=== PATIENT | female | born 2000 | race Caucasian/White ===

== ENCOUNTER 2020-08-19 14:45 | Outpatient (CLI) | payer OTHER ==
--- NOTE | 2020-08-19 17:22 | Ultrasound Report ---
PROCEDURE: OB First Trimester w/TV INDICATIONS: TECHNIQUE: Transvaginal ultrasound was performed. COMPARISON: None. FINDINGS: The LMP is reported to be 07/01/2020 with estimated delivery date based on this parameter 05/07/2021. T he current examination shows a crown-rump length of 1.2 cm which correlates with 7 weeks 3 days of ge stational age and cardiac activity at 1 65 bpm was observed. The delivery date based on this ev aluation is 04/04/2021, +/- 5 days. Corpus luteum cyst is noted at the left ovary. IMPRESSION: Single living intrauterine gestation, with the delivery date projected to be centered on 04/04/2021, + /- 5 days. Follow-up anatomic survey at 20 weeks gestation is recommended. Reviewed by: Channing Duque MD on 08/19/2020 5:21 PM PST Approved by: Channing Duque MD on 08/19/2020 5:21 PM PST Station ID: [id number]
== END 2020-08-19 14:46 | disposition home or self-care (01) ==
LOC: DI 14:45
PROVIDERS: ATTEND Obstetrics & Gynecology
DX: Z33.1 Pregnant state, incidental (principal)
CPT/HCPCS: 76801; 76817

== ENCOUNTER 2020-08-22 15:45 | Outpatient (CLI) | payer OTHER ==
[2020-08-22 17:16] LABS: MUDS CUTOFF CONCENTRATIONS CUTOFF CONC BELOW:
[2020-08-22 19:29] LABS: BILIRUBIN,URINE NEGATIVE (NEGATIVE); GLUCOSE, URINE (UA) NEGATIVE (NEGATIVE); KETONES,URINE (UA) NEGATIVE (NEGATIVE); LEUKOCYTE ESTERASE, URINE NEGATIVE (NEGATIVE); NITRITE,URINE NEGATIVE (NEGATIVE); OCCULT BLOOD,URINE NEGATIVE (NEGATIVE); PH,URINE 6.5 PH (5.0-7.5); PROTEIN,URINE NEGATIVE (NEGATIVE); UROBILINOGEN,URINE 0.2 (NORMAL) E.U./dL (NORMAL)
[2020-08-22 19:42] LABS: CLARITY,URINE CLEAR (CLEAR)
[2020-08-22 19:43] LABS: AMPHETAMINE SCREEN,URINE NEGATIVE (NEGATIVE); BENZODIAZEPINES SCREEN, URINE NEGATIVE (NEGATIVE); COCAINE SCREEN URINE NEGATIVE (NEGATIVE); METHADONE SCREEN, URINE NEGATIVE (NEGATIVE); METHAMPHETAMINES SCREEN, URINE NEGATIVE (NEGATIVE); OPIATE SCREEN, URINE NEGATIVE (NEGATIVE); OXYCODONE SCREEN, URINE NEGATIVE (NEGATIVE); PROPOXYPHENE SCREEN, URINE NEGATIVE (NEGATIVE); TRICYCLIC ANTIDEPRESSANT,URINE NEGATIVE (NEGATIVE)
[2020-08-22 19:58] LABS: BACTERIA,URINE Few /HPF (None Seen); RBC,URINE None Seen /HPF (0-5); SQUAMOUS EPITHELIAL CELL,UR FEW Squamous (<= Few)
== END 2020-08-22 23:59 | disposition home or self-care (01) ==
LOC: LAB.R 15:45
PROVIDERS: ATTEND Obstetrics & Gynecology
DX: Z34.00 Encounter for supervision of normal first pregnancy, unspecified trimester (principal)
CPT/HCPCS: 80306; 81001; 87086

== ENCOUNTER 2020-09-10 15:57 | Outpatient (CLI) | payer OTHER ==
[2020-09-10 16:30] LABS: MUDS CUTOFF CONCENTRATIONS CUTOFF CONC BELOW:
[2020-09-10 16:33] LABS: BASOPHILS % (AUTO) 0.3 %; EOSINOPHILS # (AUTO) 0.1 10^3/uL (0.0-0.7); EOSINOPHILS % (AUTO) 0.9 %; HGB - HEMOGLOBIN 11.6 g/dL (12.0-16.0); LYMPHOCYTES # (AUTO) 2.6 10^3/uL (1.5-3.5); LYMPHOCYTES % (AUTO) 21.7 %; MEAN CORPUSCULAR HEMOGLOBIN 30.1 pg (27.0-31.0); MEAN CORPUSCULAR HGB CONC 33.8 g/dL (32.0-36.0); MEAN CORPUSCULAR VOLUME 89.1 fL (81.0-99.0); MEAN PLATELET VOLUME 9.8 fL (7.9-10.8); MONOCYTES # (AUTO) 0.6 10^3/uL (0.0-1.0); MONOCYTES % (AUTO) 5.1 %; NEUTROPHILS # (AUTO) 8.5 10^3/uL (1.5-6.6); NEUTROPHILS % (AUTO) 71.6 %; PLT - PLATELET COUNT 300 10^3/uL (130-450); RED BLOOD COUNT 3.85 10^6/uL (4.20-5.40); WHITE BLOOD COUNT 11.9 x10^3/uL (4.8-10.8)
[2020-09-10 17:03] LABS: BILIRUBIN,URINE NEGATIVE (NEGATIVE); GLUCOSE, URINE (UA) NEGATIVE (NEGATIVE); KETONES,URINE (UA) TRACE mg/dL (NEGATIVE); LEUKOCYTE ESTERASE, URINE NEGATIVE (NEGATIVE); NITRITE,URINE NEGATIVE (NEGATIVE); OCCULT BLOOD,URINE NEGATIVE (NEGATIVE); PROTEIN,URINE NEGATIVE (NEGATIVE); UROBILINOGEN,URINE 0.2 (NORMAL) E.U./dL (NORMAL)
[2020-09-10 17:17] LABS: CLARITY,URINE CLEAR (CLEAR)
[2020-09-10 17:18] LABS: BACTERIA,URINE Many /HPF (None Seen); RBC,URINE 0-5 /HPF (0-5); SQUAMOUS EPITHELIAL CELL,UR MANY Squamous (<= Few)
[2020-09-10 17:20] LABS: AMPHETAMINE SCREEN,URINE NEGATIVE (NEGATIVE); BENZODIAZEPINES SCREEN, URINE NEGATIVE (NEGATIVE); COCAINE SCREEN URINE NEGATIVE (NEGATIVE); METHADONE SCREEN, URINE NEGATIVE (NEGATIVE); METHAMPHETAMINES SCREEN, URINE NEGATIVE (NEGATIVE); OPIATE SCREEN, URINE NEGATIVE (NEGATIVE); OXYCODONE SCREEN, URINE NEGATIVE (NEGATIVE); PROPOXYPHENE SCREEN, URINE NEGATIVE (NEGATIVE); TRICYCLIC ANTIDEPRESSANT,URINE NEGATIVE (NEGATIVE)
[2020-09-12 09:46] LABS: HIV AG/AB 4TH GEN NON-REACTIVE (NON-REACTIVE)
[2020-09-12 13:07] LABS: HEPATITIS B SURFACE ANTIGEN NON-REACTIVE (NON-REACTIVE); HEPATITIS C ANTIBODY NON-REACTIVE (NON-REACTIVE)
== END 2020-09-10 15:58 | disposition home or self-care (01) ==
LOC: LAB 15:57
PROVIDERS: ATTEND Obstetrics & Gynecology
DX: Z34.00 Encounter for supervision of normal first pregnancy, unspecified trimester (principal)
CPT/HCPCS: 36415; 80306; 81001; 81599; 85025; 86592; 86762; 86787; 86803; 86850; 86900; 86901; 87086; 87340; 87389

== ENCOUNTER 2020-11-10 08:00 | Outpatient (CLI) | payer OTHER | END 2020-11-10 23:59 | disposition home or self-care (01) | LOC: LAB 08:00 | PROVIDERS: ATTEND Advanced Practice Midwife | DX: Z34.90 Encounter for supervision of normal pregnancy, unspecified, unspecified trimester (principal); Z36.8A Encounter for antenatal screening for other genetic defects | CPT/HCPCS: 36415; 81511; 81599 ==

== ENCOUNTER 2020-11-15 08:17 | Outpatient (CLI) | payer OTHER ==
--- NOTE | 2020-11-15 11:41 | Ultrasound Report ---
PROCEDURE: OB Detailed Eval INDICATIONS: SUPERVISION OF OUTSIDE/PRIOR DATING DATA: Last menstrual period (LMP): 07/01/2020. LMP-based estimated date of delivery (VEGA): 05/07/2021. First dating scan (date and location): 08/19/2020. Estimated date of delivery (VEGA) from first dating scan: 04/04/2021. TECHNIQUE: Real-time scanning was performed of the fetus, with image documentation and biometric measurements. Endovaginal scanning: Not performed COMPARISON: None. FINDINGS: General: A single living intrauterine gestation is present. Presentation: Vertex Placenta: Placental position is anterior, without previa. Amniotic fluid index: 11.8 cm, 22nd percentile for gestational age. Largest pocket measures 4.2 cm . heart rate: 169 beats per minute. Maternal cervical canal: 4.4 cm long; normal length is 2.5 cm or more. biometrics: Biparietal diameter: 4.7 cm, 20 weeks 2 days Head circumference: 17.5 cm, 20 weeks 0 days Abdominal circumference: 14.9 cm, 21 weeks 1 day Femur length: 3.1 cm, 19 weeks 5 days Estimated gestational age from initial scan: 20 weeks 0 days. Composite gestational age from present scan: 20 weeks 0 days Estimated weight and percentile: 323 g, 42nd percentile Measurement variability in biometric dating: +/- 10 days from 12-20 weeks gestation, +/- 2 weeks from 20-30 weeks gestation, +/- 3 weeks at 30 weeks gestation or later. Anatomic survey: Neuro: Ventricles are normal at less than 10 mm. Cisterna magna is normal at 3-11 mm. Cerebellum i s normal in size and morphology. Nuchal skin fold: Normal at less than 6 mm between 14 and 20 weeks gestational age. Face: Nose and lips, facial profile are normal. Spine: No evidence for spina bifida. Heart: 4-chambered heart is present, with normal ventricular outflow tracts. Diaphragm: Diaphragm is intact. Stomach: Left-sided stomach is present. Kidneys: No hydronephrosis. Normal is less than 5 mm in 2nd trimester, less than 7 mm in 3rd trimester. Cord: 3 vessel cord has orthotopic insertion. Bladder: Normal in size. Extremities: All 4 extremities are visualized. IMPRESSION: Single living intrauterine fetus in vertex presentation demonstrating expected interval growth as abo ve. face and profile not well seen due to gestational position. Recommend follow-up. Otherwise, nor mal survey. Reviewed by: Everardo Wiseman MD on 11/15/2020 11:39 AM PST Approved by: Everardo Wiseman MD on 11/15/2020 11:39 AM PST Station ID: [id number]
== END 2020-11-15 08:18 | disposition home or self-care (01) ==
LOC: DI 08:17
PROVIDERS: ATTEND Advanced Practice Midwife
DX: Z34.92 Encounter for supervision of normal pregnancy, unspecified, second trimester (principal)

== ENCOUNTER 2020-11-28 13:42 | Outpatient (CLI) | payer OTHER ==
--- NOTE | 2020-11-28 17:19 | Ultrasound Report ---
PROCEDURE: OB F/U or Repeat INDICATIONS: SUPERVISION OF NORMAL , F/U FAS OUTSIDE/PRIOR DATING DATA: Last menstrual period (LMP): 07/01/2020. LMP-based estimated date of delivery (VEGA): 05/07/2021. First dating scan (date and location): 08/19/2020. Estimated date of delivery (VEGA) from first dating scan: 04/04/2021. TECHNIQUE: Real-time scanning was performed of the fetus, with image documentation and biometric measurements. Endovaginal scanning: Not needed COMPARISON: All prior OB ultrasound studies for this . FINDINGS: General: A single living intrauterine gestation is present. Presentation: Vertex Placenta: Placental position is anterior, without previa. Amniotic fluid index: 14.0 cm, 44th percentile for gestational age. heart rate: 153 beats per minute. Maternal cervical canal: 5.6 cm long; normal length is 2.5 cm or more. biometrics: Estimated gestational age from initial scan: 21 weeks 6 days. Measurement variability in biometric dating: +/- 10 days from 12-20 weeks gestation, +/- 2 weeks from 20-30 weeks gestation, +/- 3 weeks at 30 weeks gestation or more. Other: Prior OB ultrasound did not allow clear visualization of the facial profile due to positioning. Currently the examination allows clear visualization of the facial structures and profi le. Completion of the anatomic survey has been achieved. IMPRESSION: Completion of the anatomic survey, excellent visualization of the facial pro file and facial structures. Reviewed by: Channing Duque MD on 11/28/2020 5:17 PM PST Approved by: Channing Duque MD on 11/28/2020 5:17 PM PST Station ID: [id number]
== END 2020-11-28 13:43 | disposition home or self-care (01) ==
LOC: DI 13:42
PROVIDERS: ATTEND Advanced Practice Midwife
DX: Z34.92 Encounter for supervision of normal pregnancy, unspecified, second trimester (principal); Z36.89 Encounter for other specified antenatal screening

== ENCOUNTER 2021-01-06 15:52 | Outpatient (CLI) | payer OTHER ==
[2021-01-06 17:08] LABS: HCT - HEMATOCRIT 31.8 % (37.0-47.0); HGB - HEMOGLOBIN 10.6 g/dL (12.0-16.0); MEAN CORPUSCULAR HEMOGLOBIN 31.5 pg (27.0-31.0); MEAN CORPUSCULAR HGB CONC 33.3 g/dL (32.0-36.0); MEAN CORPUSCULAR VOLUME 94.4 fL (81.0-99.0); MEAN PLATELET VOLUME 9.6 fL (7.9-10.8); RED BLOOD COUNT 3.37 10^6/uL (4.20-5.40); RED CELL DISTRIBUTION WIDTH 13.2 % (12.0-15.0); WHITE BLOOD COUNT 9.5 x10^3/uL (4.8-10.8)
== END 2021-01-06 15:53 | disposition home or self-care (01) ==
LOC: LAB 15:52
PROVIDERS: ATTEND Nurse Practitioner Obstetrics & Gynecology
DX: Z36.89 Encounter for other specified antenatal screening (principal)
CPT/HCPCS: 36415; 81599; 82950; 85027; 86850

== ENCOUNTER 2021-02-18 16:00 | Outpatient (CLI) | payer OTHER ==
[2021-02-18 16:18] LABS: HCT - HEMATOCRIT 35.5 % (37.0-47.0); HGB - HEMOGLOBIN 11.6 g/dL (12.0-16.0); MEAN CORPUSCULAR VOLUME 93.2 fL (81.0-99.0); RED BLOOD COUNT 3.81 10^6/uL (4.20-5.40); WHITE BLOOD COUNT 11.6 x10^3/uL (4.8-10.8)
[2021-02-18 16:19] LABS: MEAN CORPUSCULAR HEMOGLOBIN 30.4 pg (27.0-31.0); MEAN CORPUSCULAR HGB CONC 32.7 g/dL (32.0-36.0); MEAN PLATELET VOLUME 9.4 fL (7.9-10.8); RED CELL DISTRIBUTION WIDTH 14.1 % (12.0-15.0)
== END 2021-02-18 16:01 | disposition home or self-care (01) ==
LOC: LAB 16:00
PROVIDERS: ATTEND Radiology Diagnostic Radiology
DX: O99.019 Anemia complicating pregnancy, unspecified trimester (principal)
CPT/HCPCS: 36415; 85027

== ENCOUNTER 2021-03-10 08:00 | Outpatient (CLI) | payer OTHER | END 2021-03-10 23:59 | disposition home or self-care (01) | LOC: LAB.WC 08:00 → MERGE 15:35 → LAB.WC 23:59 | PROVIDERS: ATTEND Nurse Practitioner Obstetrics & Gynecology | DX: Z36.85 Encounter for antenatal screening for Streptococcus B (principal) | CPT/HCPCS: 87797 ==

== ENCOUNTER 2021-03-28 23:40 | Inpatient (IN) | payer OTHER ==
[2021-03-28] MEDS ORDERED: OXYTOCIN/SODIUM CHLORIDE 500 ML IV PRN (23:58)
[2021-03-28] MEDS ORDERED: OXYTOCIN 10 UNIT/ML VIAL IM PRN (23:58)
[2021-03-28] MEDS ORDERED: METHYLERGONOVINE 0.2 MG/ML VIAL IM PRN (23:58)
[2021-03-28] MEDS ORDERED: ONDANSETRON 4 MG/2 ML VIAL IVP PRN (23:58)
[2021-03-28] MEDS ORDERED: SODIUM CHLORIDE FLUSH 0.9% 10 ML SYRINGE IVP PRN (23:58)
[2021-03-28] MEDS ORDERED: LIDOCAINE-MPF 1% 30 ML VIAL ID PRN (23:58)
[2021-03-28] MEDS ORDERED: miSOPROStoL 200 MCG TABLET BC PRN (23:58)
[2021-03-28] MEDS ORDERED: CARBOPROST TROMETHAMINE 250 MCG/ML AMP IM PRN (23:58)
[2021-03-28] MEDS ORDERED: TRANEXAMIC ACID IN NACL 1,000 MG/100 ML BAG IV PRN (23:58)
--- NOTE | 2021-03-29 00:41 | HISTORY & PHYSICAL EXAMINATION ---
Admit History - Visit Reason Visit Reason: Membranes rupture - : 1 Parity: 0 Risk/History: positive: None Complications This : positive: Other (Excessive weight gain) - Mother's Labs Mother's Blood Type: positive: B Mother's RH: positive: Positive GBS: positive: Group B Step Negative Rubella Status: positive: Immune - Other Maternal History Other Maternal History: Patient is a 20 yo who presents with gross rupture of membranes. Patient reports waking from sleep at approximately 22:50 with a popping sensation. Had large gush of fluid and continues to pass large volumes of fluid. No VB. Endorses FM. Intermittent contractions. Excessive weight gain in of 47.6# Otherwise uncomplicated course. Anemia on iron supplementation. PMH: none PSH: none FH: mother with migraines SOC HX: Lives in [place] with active duty [employer] Works in [employer] No MARYSE PNC: Initial U/S: 08/19/2020 @ 7.3wks gestation c/w LMP dating for final VEGA 04/04/2021 B pos/Rubella immune VZV immune Genetic testing : Quad screen negative FAS 11/15/2020: Anterior placenta. PATIENCE wnl. EFW 42%. 3VC. face and profile not well seen due to position. Follow up recommended. 11/28/2020 Completion FAS WNL. Glucola- 95 27.3 CBC- 31.8 Fe ordered CBC- started Fe approx 01/12/2021- CBC 5/5 35.5/plt 349 Influenza: declines TDAP: 01/07/2021 GBS at 36 weeks- NEGATIVE HSV: denies self and partner Breast pump Rx 01/07/2021 MOD: Anticipate ; Partner Manolo - active duty; Girl- [place] pp contraception: POPs pap: 09/12/2020- neg Meds/Allgy - Allergies Allergies/Adverse Reactions: Allergies Allergy/AdvReac Type Severity Reaction Status Date / Time No Known Drug Allergies Allergy Verified 03/29/21 00:39 Review of Systems - Other Findings Other Findings: As per HPI, otherwise remaining systems are negative. Physical - Abdominal Exam Vital Signs: 118/4 129 Contraction Frequency (min/apart): Q6-10 Contraction Intensity: positive: Mild to moderate - Monitoring Heart Rate Baseline: 145 mod irving 15x15 accels no decels Strip Review: positive: Category I - Presentation Presentation: positive: Vertex - Vaginal Exam Membranes: positive: Membranes ruptured Dilation (in cm): Too high to reach per RN exam Station: positive: Ballotable Cervical Position: positive: Posterior - Speculum Exam Findings: positive: Gross leak - Other Notes Labor Progress Note/Additional Text: GEN: NAD HEENT: NCAT CV: tachycardic RESP: CTAB, normal effrot ABD: gravid, S&NT/ND EXT: WWP, no LE edema PSYCH: appropriate affect NEURO: A&O Vertex by BSUS Plan for Labor - Plan For Labor Plan for Labor: 20 yo at 39+1 wga here with gross ROM PROM: Intermittent mild contractions with no cervical change -Patient is initially tachycardic. Given 500 cc fluid bolus and HR returned to 90s -Starting with misoprostol 25 mcg BC Q4H for up to 6 doses -Will start pitocin when favorable FWB: Well grown, confirmed vertex by BSUS, GBS neg, Cat I tracing -Cont EFM PAIN: Fentanyl 50-100 mcg Q1H to max of 4 doses and not be given after 7 cm Epidural as desired Nitrous oxide as desires Anticipate In-patient care
[2021-03-29 00:44] LABS: BASOPHILS % (AUTO) 0.3 %; EOSINOPHILS # (AUTO) 0.1 10^3/uL (0.0-0.7); EOSINOPHILS % (AUTO) 0.8 %; HCT - HEMATOCRIT 35.3 % (37.0-47.0); HGB - HEMOGLOBIN 11.9 g/dL (12.0-16.0); LYMPHOCYTES % (AUTO) 28.6 %; MEAN CORPUSCULAR HEMOGLOBIN 30.6 pg (27.0-31.0); MEAN CORPUSCULAR HGB CONC 33.7 g/dL (32.0-36.0); MEAN CORPUSCULAR VOLUME 90.7 fL (81.0-99.0); MEAN PLATELET VOLUME 10.7 fL (7.9-10.8); MONOCYTES # (AUTO) 0.8 10^3/uL (0.0-1.0); MONOCYTES % (AUTO) 7.2 %; NEUTROPHILS # (AUTO) 6.6 10^3/uL (1.5-6.6); NEUTROPHILS % (AUTO) 62.5 %; PLT - PLATELET COUNT 347 10^3/uL (130-450); RED BLOOD COUNT 3.89 10^6/uL (4.20-5.40); RED CELL DISTRIBUTION WIDTH 13.3 % (12.0-15.0); WHITE BLOOD COUNT 10.6 x10^3/uL (4.8-10.8)
[2021-03-29] MEDS: LACTATED RINGERS 1,000 ML IV SCH ×3 (01:15→20:11)
[2021-03-29] MEDS ORDERED: TERBUTALINE 1 MG/ML VIAL SUBQ PRN (01:39)
[2021-03-29] MEDS ORDERED: LABETALOL 20 MG/4 ML SYRINGE IVP PRN (01:39)
[2021-03-29] MEDS ORDERED: hydrALAZINE INJ 20 MG/ML VIAL IVP PRN (01:39)
[2021-03-29] MEDS ORDERED: ONDANSETRON ODT 4 MG TABLET TL PRN (01:39)
[2021-03-29] MEDS ORDERED: SODIUM CHLORIDE FLUSH 0.9% 10 ML SYRINGE IVP PRN (01:39)
[2021-03-29] MEDS: miSOPROStoL 100 MCG TABLET BC SCH ×3 (01:50→11:14)
[2021-03-29] MEDS ORDERED: OXYTOCIN/SODIUM CHLORIDE 500 ML IV SCH (02:00)
[2021-03-29] MEDS: fentaNYL 100 MCG/2 ML VIAL IVP PRN ×2 (08:23→13:01)
[2021-03-29] MEDS: SODIUM CHLORIDE FLUSH 0.9% 10 ML SYRINGE IVP SCH ×2 (08:24→13:02)
[2021-03-29] MEDS ORDERED: SODIUM CHLORIDE FLUSH 0.9% 10 ML SYRINGE IVP SCH (09:00)
[2021-03-29] MEDS ORDERED: ROPIVACAINE 0.2% 200 MG/100 ML BAG EP ONE (15:49)
[2021-03-29] MEDS ORDERED: ePHEDrine 50 MG/ML VIAL IVP ONE (16:40)
[2021-03-29] MEDS ORDERED: ONDANSETRON 4 MG/2 ML VIAL IVP PRN (17:02)
[2021-03-29] MEDS ORDERED: NALBUPHINE 10 MG/ML AMP IVP PRN (17:02)
[2021-03-29] MEDS ORDERED: diphenhydrAMINE INJ 50 MG/ML VIAL IVP PRN (17:02)
[2021-03-29] MEDS ORDERED: NALOXONE 0.4 MG/ML VIAL IVP PRN (17:02)
[2021-03-29] MEDS ORDERED: METOCLOPRAMIDE 10 MG/2 ML VIAL IVP PRN (17:02)
--- NOTE | 2021-03-29 17:06 | ANESTHESIA ---
Pre-Anesthesia VS, & Labs - Diagnosis Term labor, IUP - Procedure Epidural for Vital Signs: Temp Pulse Resp BP Pulse Ox 37.4 C 110 H 20 118/64 03/29/21 00:57 03/29/21 00:57 03/29/21 00:57 03/29/21 00:57 Height: 5 ft 4 in Weight (kg): 104.326 kg Body Mass Index: 39.4 BMI Classification: Obese - NPO Last Fluid Intake: t/o day Last Food Intake: full dinner - Is Patient ?: Yes - Lab Results Current Lab Results: Laboratory Tests 03/29/21 00:50: Blood Type B POSITIVE, Antibody Screen NEGATIVE 03/29/21 00:20: WBC 10.6, RBC 3.89 L, Hgb 11.9 L, Hct 35.3 L, MCV 90.7, MCH 30.6, MCHC 33.7, RDW 13.3, Plt Count 347, MPV 10.7, Neut # (Auto) 6.6, Lymph # (Auto) 3.0, Stanton # (Auto) 0.8, Eos # (Auto) 0.1, Baso # (Auto) 0.0, Absolute Nucleated RBC 0.00, Nucleated RBC % 0.0 Lab results reviewed: Yes Fish Bones: 03/29/21 00:20 Home Medications and Allergies Active Medications Carboprost Tromethamine (Carboprost Tromethamine 250 Mcg/Ml Amp) 250 mcg IM Q15M PRN PRN Reason: Step 4: Hemorrhage protocol Stop: 04/02/21 23:59 Fentanyl (Fentanyl 100 Mcg/2 Ml Vial) 50 mcg IVP Q1H PRN PRN Reason: PAIN Last Admin: 03/29/21 13:01 Dose: 50 mcg Documented by: Hydralazine HCl (Hydralazine Inj 20 Mg/Ml Vial) 10 mg IVP .ONCE PRN; Protocol PRN Reason: Step 9 of Labetalol protocol Stop: 04/03/21 01:42 Lactated Ringer's (Lr) 1,000 mls @ 150 mls/hr IV .Q6H40M JANINE Last Admin: 03/29/21 15:30 Dose: 150 mls/hr Documented by: Oxytocin/Sodium Chloride (Pitocin/Sodium Chloride) 500 mls @ 999 mls/hr IV PRN PRN; Protocol PRN Reason: POST- HEMORR PREVENTION Stop: 04/02/21 23:59 Tranexamic Acid (Tranexamic 1,000 Mg/100ml-Nacl) 1,000 mg in 100 mls @ 600 mls/hr IV .ONCE PRN PRN Reason: EBL >1200mL and within 3hr Stop: 04/02/21 23:59 Lactated Ringer's (Lr) 1,000 mls @ 100 mls/hr IV .Q10H [facility] Oxytocin/Sodium Chloride (Pitocin/Sodium Chloride) 500 mls @ 1 mls/hr IV TITR JANINE; Protocol Labetalol HCl (Labetalol 20 Mg/4 Ml Syringe) 20 - 80 mg IVP Q10M PRN; Protocol PRN Reason: SBP >160 or DBP >110 Lidocaine HCl (Lidocaine-Mpf 1% 30 Ml Vial) 30 ml ID .ONCE PRN PRN Reason: PERINEAL REPAIR Stop: 04/02/21 23:59 Methylergonovine Maleate (Methylergonovine 0.2 Mg/Ml Vial) 0.2 mg IM .ONCE PRN PRN Reason: Step 2: Hemorrhage protocol Stop: 04/02/21 23:59 Misoprostol (Misoprostol 200 Mcg Tablet) 800 mcg BC .ONCE PRN PRN Reason: Step 3: Hemorrhage protocol Stop: 04/02/21 23:59 Misoprostol (Misoprostol 100 Mcg Tablet) 25 mcg BC Q4H [facility] Last Admin: 03/29/21 11:14 Dose: 25 mcg Documented by: Ondansetron HCl (Ondansetron 4 Mg/2 Ml Vial) 4 mg IVP Q4H PRN PRN Reason: Nausea / Vomiting Ondansetron HCl (Ondansetron Odt 4 Mg Tablet) 4 mg TL Q4HR PRN PRN Reason: Nausea / Vomiting Oxytocin (Oxytocin 10 Unit/Ml Vial) 10 unit IM .ONCE PRN PRN Reason: Step one: If no IV access Stop: 04/02/21 23:59 Sodium Chloride (Sodium Chloride Flush 0.9% 10 Ml Syringe) 10 ml IVP PRN PRN PRN Reason: NEEDED PER PROVIDER ORDERS Sodium Chloride (Sodium Chloride Flush 0.9% 10 Ml Syringe) 10 ml IVP 0100,0900,1700 [facility] Last Admin: 03/29/21 13:02 Dose: 10 ml Documented by: Sodium Chloride (Sodium Chloride Flush 0.9% 10 Ml Syringe) 10 ml IVP 0100,0900,1700 JANINE Sodium Chloride (Sodium Chloride Flush 0.9% 10 Ml Syringe) 10 ml IVP PRN PRN PRN Reason: NEEDED PER PROVIDER ORDERS Terbutaline Sulfate (Terbutaline 1 Mg/Ml Vial) 0.25 mg SUBQ Q1H PRN PRN Reason: PER PHYSICIAN ORDER Allergies/Adverse Reactions: Allergies Allergy/AdvReac Type Severity Reaction Status Date / Time No Known Drug Allergies Allergy Verified 03/29/21 00:39 Anes History & Medical History - Anesthetic History Anesthesia Complications: reports: No previous complications Family history of Anesthesia Complications: Denies Family history of Malignant Hyperthermia: Denies - Medical History Smoking Status: Never smoker History of Cancer?: No - Obstetrical History : 1 Parity: 0 Events: reports: None Complications: reports: Other (Excessive weight gain) Exam General: Alert, Oriented x3, Cooperative Dental: WNL Mouth Openin Fingerbreadth Neck Mobility: Normal Mallampati classification: II Thyromental Distance: 4-6 cm Respiratory: No respiratory distress Cardiovascular: Regular rate Neurological: Normal speech Mental/Cognitive Status: Alert/Oriented X3, Normal for patient Cognitive Status: Within normal limits Plan Anesthesia Type: Epidural Consent for Procedure(s) Verified and Reviewed: Yes Code Status: Attempt Resuscitation ASA classification: 2-Mild systemic disease Is this case an emergency?: No
--- NOTE | 2021-03-29 17:42 | PROVIDER PROGRESS NOTE ---
Subjective - Prog Note Date Prog Note Date: 03/29/21 Prog Note Time: 15:34 - Subjective Subjective: Patient has received misoprostol 25 mcg BC x3. having intermittent contractions, moderately painful. Last exam was at 0909 /-3. Afebrile. Continues to leak clear fluid. tracing has shown baseline 135 moderately variability with 15x15 accels a nd occ decels; variable and in correspondence with contractions TOCO: irreg Q6-10 VS 111/57 80 14 100 37 GEN: NAD CV: RR RESP: nl effort ABD: gravid, S&NT SVE: deferred /2 SROM -Will start pitocin -patient desires epidural prior to start of pitocin -GBs neg; no abx indicated -Anticipate Cat I tracing with occ variables -appears positional in setting of ROM -If continues or increases in frequency or reactivity, will consider amnioinfusion Anticipate Objective - Vital Signs/Intake & Output Intake & Output: Intake & Output 03/26/21 03/27/21 03/28/21 03/29/21 23:59 23:59 23:59 23:59 Intake Total 2500 Balance 2500 - Lab Results Fish Bones: 03/29/21 00:20 Other Labs: Lab Results x24hrs 03/29/21 03/29/21 Range/Units 00:50 00:20 WBC 10.6 (4.8-10.8) x10^3/uL RBC 3.89 L (4.20-5.40) 10^6/uL Hgb 11.9 L (12.0-16.0) g/dL Hct 35.3 L (37.0-47.0) % MCV 90.7 (81.0-99.0) fL MCH 30.6 (27.0-31.0) pg MCHC 33.7 (32.0-36.0) g/dL RDW 13.3 (12.0-15.0) % Plt Count 347 (130-450) 10^3/uL MPV 10.7 (7.9-10.8) fL Neut # (Auto) 6.6 (1.5-6.6) 10^3/uL Lymph # (Auto) 3.0 (1.5-3.5) 10^3/uL Amelia # (Auto) 0.8 (0.0-1.0) 10^3/uL Eos # (Auto) 0.1 (0.0-0.7) 10^3/uL Baso # (Auto) 0.0 (0.0-0.1) 10^3/uL Absolute Nucleated RBC 0.00 x10^3/uL Nucleated RBC % 0.0 /100WBC Blood Type B POSITIVE Antibody Screen NEGATIVE
--- NOTE | 2021-03-29 19:23 | PROVIDER PROGRESS NOTE ---
Subjective - Prog Note Date Prog Note Date: 03/29/21 Prog Note Time: 19:19 - Subjective Subjective: 20 yo at 39+1 with SROM; not yet in labor Patient persistently hypotensive after epidural. Has received ephedrine x2 and LR bolus x2. FHR wnl and maternal HR wnl. Asymptomatic. Ample urine output. Pitocin started at 5:45 pm; delayed due to tachycardia which has resolved with fluid bolus. tachycardia now resolved. Fluid remains clear per report. Pitocin currently at 2 mU/min. Last SVE at 9:09 am but not yet in cleear contraction pattern. GEN: NAD NEURO: A&O; mentating well CV: RR RESP: nl effort ABD: gravid, soft and NT EXT: WWP EFM 140 mod irving 15x15 accels no decels TOCO: irritable A/P PROM at 39+1 s/p miso 25 mcg BC x3 Started pitocin at 17:45; currently at 2 mU/min without regular contraction pattern Hypotensive but w/o symptoms, HR and FHR wnl, excellent UOP. Anesthesia to see patient to reassess but no evidence of hypoperfusion Limit SVE given prolonged rupture of membranes GBS neg Antibiotics to be reserved for s/s of chorioamnionitis Cont with pitocin induction Objective - Vital Signs/Intake & Output Intake & Output: Intake & Output 03/26/21 03/27/21 03/28/21 03/29/21 23:59 23:59 23:59 23:59 Intake Total 2500 Output Total 250 Balance 2250 - Lab Results Fish Bones: 03/29/21 00:20 Other Labs: Lab Results x24hrs 03/29/21 03/29/21 Range/Units 00:50 00:20 WBC 10.6 (4.8-10.8) x10^3/uL RBC 3.89 L (4.20-5.40) 10^6/uL Hgb 11.9 L (12.0-16.0) g/dL Hct 35.3 L (37.0-47.0) % MCV 90.7 (81.0-99.0) fL MCH 30.6 (27.0-31.0) pg MCHC 33.7 (32.0-36.0) g/dL RDW 13.3 (12.0-15.0) % Plt Count 347 (130-450) 10^3/uL MPV 10.7 (7.9-10.8) fL Neut # (Auto) 6.6 (1.5-6.6) 10^3/uL Lymph # (Auto) 3.0 (1.5-3.5) 10^3/uL Garrard # (Auto) 0.8 (0.0-1.0) 10^3/uL Eos # (Auto) 0.1 (0.0-0.7) 10^3/uL Baso # (Auto) 0.0 (0.0-0.1) 10^3/uL Absolute Nucleated RBC 0.00 x10^3/uL Nucleated RBC % 0.0 /100WBC Blood Type B POSITIVE Antibody Screen NEGATIVE
[2021-03-29] MEDS: ePHEDrine 50 MG/ML VIAL IVP PRN ×2 (19:43→19:47)
[2021-03-29] MEDS: ROPIVACAINE 0.2% 200 MG/100 ML BAG EP PRN (23:07)
[2021-03-30] MEDS: LACTATED RINGERS 1,000 ML IV SCH ×4 (01:57→22:36)
[2021-03-30] MEDS: ROPIVACAINE 0.2% 200 MG/100 ML BAG EP PRN (06:36)
--- NOTE | 2021-03-30 08:39 | PROVIDER PROGRESS NOTE ---
Labor Progress Note - Uterine Monitoring Uterine Monitoring Mode: positive: External toco Contraction Frequency (min/apart): 3-5 Contraction Intensity: positive: Moderate Uterine Resting Tone: positive: Soft - Monitoring Monitor Mode: positive: External ultrasound Heart Rate Baseline: 140 Heart Rate Variability: positive: Moderate (6-25 bmp) Accelerations: positive: Present, 15x15 Decelerations: positive: None Strip Review: positive: Category I - Vaginal Exam Dilation (in cm): 7 Effacement (%): 90 Station: 0 Cervical Position: Midposition - Labor Progress Note Labor Progress Note/Additional Text: S: Feeling comfortable with her epidural. She states she was able to get some sleep last night. She is excited to have a baby. O: S/p 3 doses of BC misoprostol. Currently on 11mU/mL. SROM x 34.5hrs Previously had some intermittent variable decelerations and tachycardia and the pitocin was shut off x 1 hour overnight with improvement. She received LR bolus x 2 and tachycardia resolved. In addition she was experiencing asymptomatic hypotensive episodes and they seemed to have resolved as well s/p 2 doses of ephedrine. FHR baseline 145, moderate variability, + accels, no decels Contractions palpate moderate every 3 minutes with soft resting tone. SVE 7/90/0, vertex. A: 20yo @ 39.2wks gestation PROM - afebrile; prolonged rupture of membranes FHR Category I P: Continuous monitoring Continue epidural for pain management Limit SVE to avoid chorioamnionitis secondary to prolonged rupture of membranes Encouraged position changes with peanut ball. Labor RN agrees and will facilitate. Anticipate .
[2021-03-30] MEDS ORDERED: BUPIVACAINE 0.5% PF 10 ML VIAL ONE (11:36)
[2021-03-30] MEDS ORDERED: fentaNYL 100 MCG/2 ML VIAL ONE ×3 (14:05→20:02)
[2021-03-30] MEDS ORDERED: ROPIVACAINE 0.2% 200 MG/100 ML BAG EP ONE (14:05)
[2021-03-30] MEDS ORDERED: BUPIVACAINE 0.25% PF 10 ML VIAL ONE (14:05)
--- NOTE | 2021-03-30 14:20 | CONSULTATION NOTE ---
Consultation Report: called to bedside for epidural evaluation. Patient rating pain 7/10, in "butt" lower back. Patient given 0.25% Bupivacaine 6 mL and Fentanyl 100 mcg bolus. Patient rated pain 3/10 after 10 min which was acceptable to patient. Discussed with patient about baby positioning and back labor pains. Patient legs bilaterally numb and heavy. Declined epidural replacement as the bolus helped.
[2021-03-30] MEDS: diphenhydrAMINE INJ 50 MG/ML VIAL IVP PRN ×2 (14:23→16:08)
--- NOTE | 2021-03-30 15:26 | CONSULTATION NOTE ---
Consultation Report: 1518 called to the bedside for air in the epidural line. very small air bubble noted proximal to pump. Air removed from line and epidural resumed. 10cc PF 1% Lidocaine bolus given per epidural to bridge gap in epidural pump running, as next bolus is set to be delivered in 27 min. Pt tolerated well. VS remain stable.
--- NOTE | 2021-03-30 16:05 | CONSULTATION NOTE ---
Consultation Report: called to the bedside by the RN. pt states she feels like her epidural is "wearing off" before her next bolus, but when she receives a bolus she is comfortable with the epidural . pt chooses to keep current epidural. Pt 9.5cm. Epidural pump settings changed to continuous infusion with PCEA vs intermittent bolus. Discussed with RN and pt. Will monitor pt's BP closely and requested to notify anesthesia if pt's BP does not tolerate the change in settings.
[2021-03-30] MEDS ORDERED: LIDOCAINE 2% URO-JET 5 ML SYRINGE UR ONE (17:01)
[2021-03-30] MEDS ORDERED: LIDOCAINE-PF 2% 10 ML AMP SUBQ ONE (17:03)
--- NOTE | 2021-03-30 17:14 | PROVIDER PROGRESS NOTE ---
Labor Progress Note - Uterine Monitoring Uterine Monitoring Mode: positive: External toco Contraction Frequency (min/apart): 2-5 Contraction Intensity: positive: Strong Uterine Resting Tone: positive: Soft - Monitoring Monitor Mode: positive: External ultrasound Heart Rate Baseline: 150 Heart Rate Variability: positive: Moderate (6-25 bmp) Accelerations: positive: Present, 15x15 Decelerations: positive: None Strip Review: positive: Category I - Vaginal Exam Dilation (in cm): 8 Effacement (%): 80 Station: 0 Cervical Position: Midposition - Labor Progress Note Labor Progress Note/Additional Text: S: Pt experiencing significant amount of persistent breakthrough pain with epidural. She has received several epidural boluses which help initially and but only last for 15-20 minutes at a time. She reports she would be accepting of a delivery at this time. Partner is supportive at the bedside. O: FHR baseline 150, moderate variability, + accels, no decels SVE unchanged (8/80/0). S/p 2 doses of 25mg IV benadryl secondary to edematous cervix. Contractions palpate strong every 3-6 minutes with soft resting tone. Secondary to pain the pitocin was cut in off and then discontinued, secondarily her contraction pattern has begun to space out. SROM x 43 hours. T 37.7 A: 20yo @ 39.2wks gestation PROM with prolonged rupture of membranes Prolonged induction of labor FHR Category I GBS neg P: Consult special education preschool teacher physician to evaluate patient and make recommendation for f urther plan of care. Continuous monitoring Pt type and crossed x 2 units secondary to prolonged rupture of membranes and prolonged induction of labor.
--- NOTE | 2021-03-30 17:31 | CONSULTATION NOTE ---
Consultation Report: 1512 called to bedside for breakthrough pain. Epidural site intact. offered to replace epidural, pt states she does not want me to take out the epidural and replace it. Pt requests I give another bolus through the epidural. 5cc PF 2% Lidocaine with Fentanyl 100mcg per epidural. Pt reposts felling cool sensation and relief throughout except a hotspot on left hip. VS remain stable
--- NOTE | 2021-03-30 18:05 | PROVIDER PROGRESS NOTE ---
Labor Progress Note - Labor Progress Note Labor Progress Note/Additional Text: Pt meets criteria for chorioamnionitis. Ampicillin, gentamycin, and clindamycin initiated per protocol. In addition her SVE remains unchanged. Care transferred to summons server physician at this time - evaluate for delivery.
[2021-03-30] MEDS: AMPICILLIN 2 GM in SODIUM CHLORIDE 0.9% MINIBAG 100 ML IV SCH (18:21)
--- NOTE | 2021-03-30 18:35 | HISTORY & PHYSICAL EXAMINATION ---
HPI - History of Present Illness HPI Comment/Other: Patient is a 20 yo at 39+2 wga with prolonged rupture of membranes and failure to progress. Patient presented 03/29/21 with PROM at approximately 23:00. She was 1/50/-3 at time of presentation. She was given misoprostol 25 mcg BC x3. She was started on pitocin and progressed to a max dose of 16 mU/min. She progressed to 8 cm at at 10 am on 03/30/21 and has remained unchanged. She has since developed a febrile temperature 38.2 with intermittent maternal tachycardia. She was started on ampicillin/gentamicin/clindamycin for presumed chorioamnionitis. was recommended for failure to progress and prolonged rupture of membranes. Patient is in agreement. EFM 155 mod irving 15x15 accels no decels TOCO: irreg Reviewed risks/benefits/alternatives to Risks include, but are not limited to, bleeding, infection, damage to neatby tissue and organs. On average, EBL of up to 1 liter is considered within normal limits for CS. Risks of blood transfusion include infection Risk of HIV 1/2million nationwide Risk of Hepatitis 1/1 million Risks of transfusion reaction Infection risk moderate given clean/contaminated nature of procedure and IV antibiotics will be given. Damage to nearby tissue and organs including bladder, bowel, ureters, blood vessels, nerves, and fetus Damage may be noted intra-op and may be delayed until after the procedure is complete Reviewed management of complications and efforts to avoid such outcomes but revi ewed that they may occur despite our best efforts Written informed consent obtained. Social & Family Hx - Social History Smoking Status: Never smoker Meds/Allgy - Allergies Allergies/Adverse Reactions: Allergies Allergy/AdvReac Type Severity Reaction Status Date / Time No Known Drug Allergies Allergy Verified 03/29/21 00:39 Results - Lab Results Fish Bones: 03/29/21 00:20 Other Lab Results: Lab Results x24hrs 03/29/21 Range/Units 00:50 Blood Type B POSITIVE Antibody Screen NEGATIVE Crossmatch IS Only See Detail
[2021-03-30] MEDS ORDERED: CITRIC ACID/SODIUM CITRATE 15 ML UDC PO ONE ×2 (18:36→18:41)
[2021-03-30] MEDS: GENTAMICIN 280 MG in SODIUM CHLORIDE 0.9% 100ML 100 ML IV SCH (18:57)
[2021-03-30] MEDS ORDERED: BUPIVACAINE 0.5%-EPI 1:200000 PF 30 ML VIAL ONE (19:12)
[2021-03-30] MEDS ORDERED: OXYTOCIN 10 UNIT/ML VIAL ONE ×2 (19:22→20:10)
[2021-03-30] MEDS ORDERED: BUPIVACAINE 0.5%-EPI 1:200000 PF 30 ML VIAL SUBQ ONE ×2 (19:34)
[2021-03-30] MEDS ORDERED: KETAMINE 500 MG/10 ML VIAL ONE (19:41)
[2021-03-30] MEDS ORDERED: LACTATED RINGERS 1,000 ML IV ONE (20:49)
[2021-03-30] MEDS ORDERED: OXYTOCIN/SODIUM CHLORIDE 500 ML IV PRN (20:54)
[2021-03-30] MEDS ORDERED: SODIUM CHLORIDE FLUSH 0.9% 10 ML SYRINGE IVP PRN (20:54)
[2021-03-30] MEDS ORDERED: ONDANSETRON ODT 4 MG TABLET TL PRN (20:54)
--- NOTE | 2021-03-30 20:59 | OPERATIVE REPORT ---
Operative Report - General Admit Date: 03/28/21 Planned Procedure: Low transverse Pre-Op Diagnosis: IUP at 39+2 wga, failure to progress, prolonged rupture of membranes, chori Procedure Performed: Low transverse Post Op Diagnosis: Same and delivery of term gestation - Procedure Note Primary Surgeon: Barbara Hernandez MD Secondary Surgeon: Yuliet Sargent CNM Anesthesia Provider: Serene Covington CRNA Anesthesia Technique: Epidural Pathology: Placenta to be sent for cultures IV Fluids (mL): 1,200 Estimated Blood Loss (mL): 600 Urine Output (mL): 300 Indications: Patient is a 20 yo at 39+2 wga with prolonged rupture of membranes and failure to progress. Patient presented 03/29/21 with PROM at approximately 23:00. She was 150/-3 at time of presentation. She was given misoprostol 25 mcg BC x3. She was started on pitocin and progressed to a max dose of 16 mU/min. She progressed to 8 cm at at 10 am on 03/30/21 and has remained unchanged. She has since developed a febrile temperature 38.2 with intermittent maternal tachycardia. She was started on ampicillin/gentamicin/clindamycin for presumed chorioamnionitis. was recommended for failure to progress and prolonged rupture of membranes. Patient is in agreement. Findings: Female in vertex presentation with weight and Apgars pending, Normal appearing uterus, fallopian tubes, and ovaries. Complications: None - Other Other Information/Narrative: Risks benefits and alternatives of the procedure were discussed. Written informed consent was obtained. Patient was taken to the operating room where spinal anesthesia was placed and found to be adequate. She was prepped and draped in the usual sterile fashion in the dorsal supine position with a leftward tilt. Olivo catheter was in place. SCDs were in place and activated. Ampicillin 2g IV, Gentamicin 5 mg/kg, and Clindamycin 900 mg IV was given as a preoperative antibiotic. Preoperative timeout was performed. A total of 20 cc of 0.5% lidocaine with epinephrine was injected into the suture line prior to making the incision. A Pfannenstiel incision was made in the skin with a scalpel and carried through the underlying layer of fascia in a combination of sharp and blunt dissection. The fascia was incised in the midline, and the incision was extended laterally with the Martinez scissors. The superior aspect of the fascial incision was grasped with the Elaina clamps, elevated, and the underlying rectus muscles were d issected off bluntly and sharply using the Martinez scissors. Attention was then turned to the inferior aspect of the incision which in a similar fashion was grasped, tented up with Elaina clamps, and the underlying rectus muscles dissected off bluntly and sharply using Martinez scissors. The rectus muscles were then in the midline. The peritoneum was identified, tented up, and entered bluntly. The peritoneal incision was extended superiorly and inferiorly with good visualization of the bladder. The bladder that blade was then inserted. A bladder flap was not created. The lower uterine segment of the uterus was identified, and incised in a transverse fashion with a scalpel. The uterus was entered bluntly. The uterine incision was extended in a craniocaudal fashion by manual stretch. The bladder blade was removed. The infant was delivered from from vertex position. Baby was wrapped in a warm sterile towel. Delayed cord clamping was performed. After cessation of pulsations, the cord was clamped x2 and cut. The was handed off to the waiting pediatricians. The placenta was removed with manual expression. The uterus was exteriorized and cleared of all clots clots and debris via manual swipe using Ray-Kamari x2. The uterine incision was then repaired in a running locked fashion using 0 Vicryl suture. The incision was reinforced with a running imbricating layer again using 0-Vicryl suture. Excellent hemostasis was obtained. The uterus was returned to the abdomen. The gutters were cleared of all clots and debris. The pelvis was irrigated with warm normal saline. The uterine defect was well visualized in normal anatomic position it was noted again to be hemostatic. The peritoneum was then reapproximated with 2-0 Vicryl in a running fashion. The rectus muscles were then reapproximated using interrupted [id number] sutures using 2-0 Chromic. Good hemostasis was noted. The fascia was then closed using 0 Vicryl in a running fashion starting from the left lateral edge to the midline. A second suture was used to close the fascia in a running fashion starting from the right lateral edge and meeting in the midline, agian using 0-Vicryl. The subcutaneous tissue was then irrigated and closed using 2-0 chromic in a running subcutaneous suture. Skin was closed in a running subcuticular suture using 4-0 Monocryl. Steri-Strips were applied to reinforce the incsion and dressing was applied. Procedure was well-tolerated and without complication. Sponge lap and needle counts were correct x2. Patient was taken to recovery room in stable condition. RAZA Sparrow CNM, assisted with retraction, delivery of the , and suturing.
[2021-03-30] MEDS: KETOROLAC 30 MG/ML VIAL IVP SCH (21:36)
--- NOTE | 2021-03-30 21:46 | ANESTHESIA POST OP EVALUATION ---
Anesthesia Post Eval - Post Anesthesia Eval Vitals: Last Vital Signs Temp 37.9 C 03/30/21 21:12 Pulse 97 03/30/21 21:12 Resp 24 03/30/21 21:12 BP 102/66 03/30/21 21:12 Pulse Ox 98 03/30/21 21:12 CV Function Including HR & BP: Stable Pain Control: Satisfactory Nausea & Vomiting: Negative Mental Status: Baseline Respiratory Status: Airway Patent Hydration Status: Satisfactory Anesthesia Complications: None
[2021-03-30] MEDS: ACETAMINOPHEN 500 MG TABLET PO SCH (22:32)
[2021-03-31] MEDS ORDERED: SODIUM CHLORIDE FLUSH 0.9% 10 ML SYRINGE IVP SCH (01:00)
[2021-03-31] MEDS: KETOROLAC 30 MG/ML VIAL IVP SCH ×3 (03:30→16:57)
[2021-03-31 06:12] LABS: BASOPHILS # (AUTO) 0.1 10^3/uL (0.0-0.1); BASOPHILS % (AUTO) 0.4 %; EOSINOPHILS # (AUTO) 0.1 10^3/uL (0.0-0.7); EOSINOPHILS % (AUTO) 0.5 %; HCT - HEMATOCRIT 30.7 % (37.0-47.0); HGB - HEMOGLOBIN 10.2 g/dL (12.0-16.0); LYMPHOCYTES % (AUTO) 11.1 %; MEAN CORPUSCULAR HGB CONC 33.2 g/dL (32.0-36.0); MEAN CORPUSCULAR VOLUME 93.3 fL (81.0-99.0); MEAN PLATELET VOLUME 10.9 fL (7.9-10.8); MONOCYTES # (AUTO) 1.2 10^3/uL (0.0-1.0); MONOCYTES % (AUTO) 6.9 %; NEUTROPHILS # (AUTO) 14.4 10^3/uL (1.5-6.6); NEUTROPHILS % (AUTO) 80.6 %; PLT - PLATELET COUNT 285 10^3/uL (130-450); RED BLOOD COUNT 3.29 10^6/uL (4.20-5.40); RED CELL DISTRIBUTION WIDTH 13.5 % (12.0-15.0); WHITE BLOOD COUNT 17.9 x10^3/uL (4.8-10.8)
[2021-03-31] MEDS: ACETAMINOPHEN 500 MG TABLET PO SCH ×3 (06:19→22:34)
[2021-03-31] MEDS: oxyCODONE 5 MG TABLET PO PRN ×3 (07:11→22:00)
[2021-03-31] MEDS: DOCUSATE SODIUM 100 MG CAPSULE PO SCH ×2 (07:12→21:28)
[2021-03-31] MEDS: SIMETHICONE CHEW 80 MG TABLET PO PRN ×2 (07:12→13:25)
[2021-03-31] MEDS: AMPICILLIN 2 GM in SODIUM CHLORIDE 0.9% MINIBAG 100 ML IV SCH ×3 (07:41→20:58)
[2021-03-31] MEDS: CLINDAMYCIN 900 MG/50 ML 50 ML IV SCH ×2 (08:50→16:56)
[2021-03-31] MEDS: SODIUM CHLORIDE FLUSH 0.9% 10 ML SYRINGE IVP SCH (13:25)
--- NOTE | 2021-03-31 15:13 | PROVIDER PROGRESS NOTE ---
Subjective - Prog Note Date Prog Note Date: 03/31/21 Prog Note Time: 10:23 - Subjective Subjective: Patient has been up and out of bed. Tolerating po. Pain well managed. Olivo remains in place.BF going well. Objective - Vital Signs/Intake & Output Reviewed Vital Signs: Yes Vital Signs: Vital Signs x48h Temp Pulse Resp BP Pulse Ox 03/31/21 14:53 97.9 F 98 16 98 03/31/21 12:17 98.2 F 88 14 109/58 L 03/31/21 07:30 98.2 F 102 H 18 98/57 L 96 Intake & Output: Intake & Output 03/28/21 03/29/21 03/30/21 03/31/21 23:59 23:59 23:59 23:59 Intake Total 4222.5 3118.500 3230 Output Total 1480 2380 900 Balance 2742.5 528.601 2718 - Objective General Appearance: positive: No acute distress Respiratory: positive: Breath sounds nml Cardiovascular: positive: Regular rate & rhythm Peripheral Pulses: 2+ Radial (R), 2+ Radial (L), 2+ Dorsalis pedis (R), 2+ Dorsalis pedis (L) Abdomen: positive: Other (mildly TTP. FF below umbi, Dressing CDI) Skin: positive: Color nml, No rash, Warm, Dry Extremities: positive: Pedal edema (BLE edema, symmetric. NT) Neurologic/Psychiatric: positive: Oriented x3 - Lab Results Fish Bones: 03/31/21 05:46 Other Labs: Lab Results x24hrs 03/31/21 03/29/21 Range/Units 05:46 00:50 WBC 17.9 H (4.8-10.8) x10^3/uL RBC 3.29 L (4.20-5.40) 10^6/uL Hgb 10.2 L (12.0-16.0) g/dL Hct 30.7 L (37.0-47.0) % MCV 93.3 (81.0-99.0) fL MCH 31.0 (27.0-31.0) pg MCHC 33.2 (32.0-36.0) g/dL RDW 13.5 (12.0-15.0) % Plt Count 285 (130-450) 10^3/uL MPV 10.9 H (7.9-10.8) fL Neut # (Auto) 14.4 H (1.5-6.6) 10^3/uL Lymph # (Auto) 2.0 (1.5-3.5) 10^3/uL [place] # (Auto) 1.2 H (0.0-1.0) 10^3/uL Eos # (Auto) 0.1 (0.0-0.7) 10^3/uL Baso # (Auto) 0.1 (0.0-0.1) 10^3/uL Absolute Nucleated RBC 0.00 x10^3/uL Nucleated RBC % 0.0 /100WBC Blood Type B POSITIVE Antibody Screen NEGATIVE Crossmatch IS Only See Detail Assessment/Plan - Problem List (1) deliv NOS-unsp Impression: POD#1: Doing well Encourage ambulation Remove Olivo later this pm Afebrile this am; continue amp/gent/clinda for 24 hours post-surgery In-patient care
[2021-03-31] MEDS: GENTAMICIN 280 MG in SODIUM CHLORIDE 0.9% 100ML 100 ML IV SCH (18:53)
[2021-03-31] MEDS: LACTATED RINGERS 1,000 ML IV SCH (21:12)
[2021-03-31] MEDS: IBUPROFEN 600 MG TABLET PO SCH (21:27)
[2021-04-01] MEDS ORDERED: CLINDAMYCIN 900 MG/50 ML 50 ML IV SCH (01:32)
[2021-04-01] MEDS: AMPICILLIN 2 GM in SODIUM CHLORIDE 0.9% MINIBAG 100 ML IV SCH ×2 (03:15→09:10)
[2021-04-01] MEDS: IBUPROFEN 600 MG TABLET PO SCH ×3 (03:21→16:13)
[2021-04-01] MEDS: ACETAMINOPHEN 500 MG TABLET PO SCH ×2 (06:38→14:24)
[2021-04-01] MEDS: SIMETHICONE CHEW 80 MG TABLET PO PRN ×3 (07:54→16:14)
[2021-04-01] MEDS: DOCUSATE SODIUM 100 MG CAPSULE PO SCH (07:54)
[2021-04-01] MEDS: oxyCODONE 5 MG TABLET PO PRN ×3 (07:55→18:33)
[2021-04-01] MEDS: CLINDAMYCIN 900 MG/50 ML 50 ML IV SCH (10:10)
--- NOTE | 2021-04-01 13:09 | Discharge Plan ---
Discharge Plan Problem Reviewed?: Yes Disposition: Home, Self Care Condition: Good Prescriptions: Acetaminophen [Acetaminophen Extra Strength] 1,000 mg PO Q8H PRN #60 tablet PRN Reason: Pain Docusate Sodium 100Mg Capsule [Colace 100Mg Capsule] 100 - 200 mg PO BID PRN #60 cap PRN Reason: Constipation Ibuprofen [Motrin] 600 mg PO Q6H PRN #60 tab PRN Reason: Pain oxyCODONE [Roxicodone] 2.5 - 5 mg PO Q4H PRN #24 tablet PRN Reason: Severe Pain Health Concerns: Ibuprofen 600 mg by mouth every 6 hours as needed for pain Acetaminophen 500-1000 mg by mouth every 8 hours as needed for pain Docusate 100-200 mg by mouth twice a day as needed for constipation Oxycodone 5 mg by mouth every 4 hours as needed for pain Additional Instructions or Follow Up instructions: Nothing in the vagina for 6 weeks: No intercourse, tampons, douching Call for: -Fever greater than 100.5 -Pain that does not improve with pain medication -Heavy bleeding in which you are soaking a pad an hour for 2 hours in a row -Incision becomes hot, hard, red, starts to open, or leaks foul smelling fluid No lifting more than 10# for 4 weeks [address] while on narcotics Ok to shower. Let water run over the incision. Do not soap, scrub, or apply lotion. Pat dry with a clean towel or mark a management department chair. The surgical stickers will start to peel off and you can remove them when they do. Otherwise, the provider will remove them at your one week follow-up appointment. OK to use an unscented sanitary napkin or clean washcloth to keep the incision dry if the belly folds over the incision. No Smoking: If you smoke, Please STOP! Call for help. Follow-up with: Ana Cristina Hernandez MD [Provider Admit Priv/Credential] -
--- NOTE | 2021-04-01 13:11 | PROVIDER PROGRESS NOTE ---
Subjective - Prog Note Date Prog Note Date: 04/01/21 Prog Note Time: 13:09 - Subjective Subjective: Patient is up and ambulating, tolerating po, and voiding. Pain is well managed with pain medications. BF going well. Desires pm discharge Objective - Vital Signs/Intake & Output Reviewed Vital Signs: Yes Vital Signs: Vital Signs x48h Temp Pulse Resp BP Pulse Ox 04/01/21 08:03 97.7 F 80 17 111/50 L 98 Intake & Output: Intake & Output 03/29/21 03/30/21 03/31/21 04/01/21 23:59 23:59 23:59 23:59 Intake Total 4222.5 3225.500 4180 450 Output Total 1480 2380 2250 Balance 2742.5 566.055 2781 450 - Objective General Appearance: positive: No acute distress Respiratory: positive: No respiratory distress Cardiovascular: positive: Other (RR) Peripheral Pulses: 2+ Radial (R), 2+ Radial (L), 2+ Dorsalis pedis (R), 2+ Dorsalis pedis (L) Abdomen: positive: Other (Soft, mildly tender, ND. Dressing removed. Incision line CDI with steris) Skin: positive: Color nml Extremities: positive: Pedal edema (BLE edema, symmetric and non-tender) Neurologic/Psychiatric: positive: Oriented x3 - Lab Results Fish Bones: 03/31/21 05:46 Assessment/Plan - Problem List (1) deliv NOS-unsp Impression: POD#2: Desires pm discharge Afebrile more than 24 hours. DC instructions given Plan for CBC this am prior to DC home
[2021-04-01 13:36] LABS: BASOPHILS % (AUTO) 0.3 %; EOSINOPHILS # (AUTO) 0.2 10^3/uL (0.0-0.7); EOSINOPHILS % (AUTO) 1.5 %; HCT - HEMATOCRIT 28.6 % (37.0-47.0); HGB - HEMOGLOBIN 9.4 g/dL (12.0-16.0); LYMPHOCYTES # (AUTO) 1.9 10^3/uL (1.5-3.5); MEAN CORPUSCULAR HEMOGLOBIN 30.7 pg (27.0-31.0); MEAN CORPUSCULAR HGB CONC 32.9 g/dL (32.0-36.0); MEAN CORPUSCULAR VOLUME 93.5 fL (81.0-99.0); MEAN PLATELET VOLUME 10.5 fL (7.9-10.8); MONOCYTES # (AUTO) 0.6 10^3/uL (0.0-1.0); MONOCYTES % (AUTO) 5.3 %; NEUTROPHILS # (AUTO) 8.2 10^3/uL (1.5-6.6); NEUTROPHILS % (AUTO) 75.3 %; PLT - PLATELET COUNT 277 10^3/uL (130-450); RED BLOOD COUNT 3.06 10^6/uL (4.20-5.40); RED CELL DISTRIBUTION WIDTH 13.5 % (12.0-15.0); WHITE BLOOD COUNT 10.9 x10^3/uL (4.8-10.8)
[2021-04-01 16:11] VITALS: BP 111/83
--- NOTE | 2021-04-10 08:34 | DISCHARGE SUMMARY ---
"Discharge Summary Admit Date: 03/29/21 (late 03/28/21) Discharge Date: 04/01/21 Discharging Provider: Mary Condition at Discharge: Stable Discharge Disposition: 01 Home, Self Care - DIAGNOSES Admission Diagnoses: IUP at 39+0 wga Spontaneous rupture of membranes Discharge Diagnoses with Status of Each Condition: Same and delivery of term gestation chorioamnionitis delivery - HPI History of Present Illness: Patient is a 20 yo who presented with gross rupture of membranes. Patient reports waking from sleep at approximately 22:50 with a popping sensation. Had large gush of fluid and continues to pass large volumes of fluid. No VB. Endorses FM. Intermittent contractions. Excessive weight gain in of 47.6# Otherwise uncomplicated course. Anemia on iron supplementation. PMH: none PSH: none FH: mother with migraines SOC HX: Lives in [place] with active duty [employer] in [employer]: Initial U/S: 08/19/2020 @ 7.3wks gestation c/w LMP dating for final VEGA 04/04/2021 B pos/Rubella immune VZV immune Genetic testing : Quad screen negative FAS 11/15/2020: Anterior placenta. PATIENCE wnl. EFW 42%. 3VC. face and profile not well seen due to position. Follow up recommended. 11/28/2020 Completion FAS WNL. Glucola- 95 27.3 CBC- 31.8 Fe ordered CBC- started Fe approx 01/12/2021- CBC 5/5 35.5/plt 349 Influenza: declines TDAP: 01/07/2021 GBS at 36 weeks- NEGATIVE HSV: denies self and partner Breast pump Rx 01/07/2021 MOD: Anticipate ; Partner [employer] - active duty; Girl- [place] pp contraception: POPs pap: 09/12/2020- neg - CONSULTS | PROCEDURES Procedures: Primary low transverse - HOSPITAL COURSE Hospital Course: Patient is a 20 yo at 39+2 wga with prolonged rupture of membranes and failure to progress. Patient presented 03/28/21 with PROM at approximately 23:00. She was 1/50/-3 at time of presentation. She was given misoprostol 25 mcg BC x3. She was started on pitocin and progressed to a max dose of 16 mU/min. She progressed to 8 cm at at 10 am on 03/30/21 and has remained unchanged. She developed a febrile temperature 38.2 with intermittent maternal tachycardia. She was started on ampicillin/gentamicin/clindamycin for presumed chorioamnionitis. was recommended for failure to progress and prolonged rupture of membranes. Procedure was uncomplicated. Antibiotic course was continued for 24 hours after final postoperative febrile temperature. Postoperative course was uncomplicated. Patient was discharged to home with a pm discharge on POD#2. Rh positive/Rub imm - ALLERGIES Allergies/Adverse Reactions: Allergies Allergy/AdvReac Type Severity Reaction Status Date / Time No Known Drug Allergies Allergy Verified 03/29/21 00:39 - MEDICATIONS Home Medications: Ambulatory Orders Medication Instructions Recorded Confirmed Acetaminophen [Acetaminophen Extra 1,000 mg PO Q8H PRN #60 tablet 04/01/21 Strength] Docusate Sodium 100Mg Capsule 100 - 200 mg PO BID PRN #60 cap 04/01/21 [Colace 100Mg Capsule] Ibuprofen [Motrin] 600 mg PO Q6H PRN #60 tab 04/01/21 oxyCODONE [Roxicodone] 2.5 - 5 mg PO Q4H PRN #24 tablet 04/01/21 - PHYSICAL EXAM AT DISCHARGE General Appearance: positive: No acute distress Neck: positive: Nml inspection Respiratory: positive: No respiratory distress, Breath sounds nml Cardiovascular: positive: Regular rate & rhythm Abdomen: positive: Non-tender, No distention, Other (Dressing removed. Incision CDI) Skin: positive: Color nml Extremities: positive: Non-tender Neurologic/Psychiatric: positive: Oriented x3 - LABS Result Diagrams: 04/01/21 13:30 - FOLLOW UP Follow Up: one week with Dr. Hernandez - TIME SPENT Time Spent in Discharge (Minutes): 30"
== END 2021-04-01 19:43 | disposition home or self-care (01) | DRG 786 ==
LOC: WFO 23:40 → FBP 23:43 → WFO 23:57 → FBP 23:58
PROVIDERS: ADMIT Obstetrics & Gynecology; ATTEND Obstetrics & Gynecology
PROC: 10D00Z1 Extraction of Products of Conception, Low, Open Approach (ICD-10-PCS; principal; 2021-03-30 20:00)
DX: O42.12 Full-term premature rupture of membranes, onset of labor more than 24 hours following rupture (principal); O41.1230 Chorioamnionitis, third trimester, not applicable or unspecified; Z3A.39 39 weeks gestation of pregnancy; Z37.0 Single live birth; O62.0 Primary inadequate contractions; O99.892 Other specified diseases and conditions complicating childbirth; R00.0 Tachycardia, unspecified; O76 Abnormality in fetal heart rate and rhythm complicating labor and delivery; O26.53 Maternal hypotension syndrome, third trimester
CPT/HCPCS: 36415; 85025; 86850; 86900; 86901; 86920; 99211; A9270; J1200; J2765; J7120; 84112

== ENCOUNTER 2021-04-15 11:40 | Emergency (ER) | payer OTHER ==
[2021-04-15 11:53] VITALS: BP 118/61
--- NOTE | 2021-04-15 12:14 | ED Physician Documentation ---
History of Present Illness - Stated complaint Stated Complaint: BREAST PX - Chief complaint Chief Complaint: General - History obtained from History obtained from: Patient - Additonal information Additional information: About 2 weeks complicated by slow progression and chorioamnionitis, had a . For about 2 to 3 days she has had right upper outer breast tenderness and slight warmth without redness or fevers. She also has concerns about her Pfannenstiel incision. Review of Systems Constitutional: denies: Fever, Chills Eyes: reports: Reviewed and negative Ears: reports: Reviewed and negative Nose: reports: Reviewed and negative PD PAST MEDICAL HISTORY - Present Medications Home Medications: Ambulatory Orders Medication Instructions Recorded Confirmed Acetaminophen [Acetaminophen Extra 1,000 mg PO Q8H PRN #60 tablet 04/01/21 04/15/21 Strength] Docusate Sodium 100Mg Capsule 100 - 200 mg PO BID PRN #60 cap 04/01/21 04/15/21 [Colace 100Mg Capsule] Ibuprofen [Motrin] 600 mg PO Q6H PRN #60 tab 04/01/21 04/15/21 cephALEXin [Keflex] 500 mg PO Q6H #28 cap 04/15/21 - Allergies Allergies/Adverse Reactions: Allergies Allergy/AdvReac Type Severity Reaction Status Date / Time No Known Drug Allergies Allergy Verified 04/15/21 11:53 - Social History Smoking Status: Never smoker PD ED PE NORMAL - Vitals Vital signs reviewed: Yes - General General: Alert and oriented X 3, No acute distress - Abdomen Abdomen: Other (Pfannenstiel incision is clean dry and intact with may be just a touch of purulence but no cellulitis. Is really more consistent with stitch granuloma than infection.) - Derm Derm: Other (Tenderness without fluctuance and slight warmth and redness to the upper outer right breast, exam done with Charlotte SANDERS) - Neuro Neuro: Alert and oriented X 3, Normal speech Results - Vitals Vitals: Vital Signs - 24 hr 04/15/21 11:50 Temperature 36.4 C L Heart Rate 76 Respiratory 16 Rate Blood Pressure 118/61 O2 Saturation 98 Oxygen O2 Source Room air Departure - Departure Disposition: 01 Home, Self Care Clinical Impression: Mastitis Condition: Good Record reviewed to determine appropriate education?: Yes Instructions: ED Breast Infec Prescriptions: cephALEXin [Keflex] 500 mg PO Q6H #28 cap Comments: Follow-up with Dr. Hernandez for recheck Tuesday or Tuesday. Return for new or worsening symptoms especially fever.
== END 2021-04-15 12:22 | disposition home or self-care (01) ==
LOC: ED 11:40
DX: O91.22 Nonpurulent mastitis associated with the puerperium (principal)
CPT/HCPCS: 99282; 99283